=== PATIENT | female | born 1990 | race Two or more races ===

== ENCOUNTER 2019-11-23 22:35 | Inpatient (IN) | payer MEDICAID ==
[~2019-11-23] VITALS: Ht 170.2 cm; Wt 96.0 kg
[2019-11-23] MEDS ORDERED: D5%-LACTATED RINGERS 1,000 ML IV SCH (22:57)
[2019-11-23] MEDS ORDERED: OXYTOCIN 30U/ 0.9% NaCL 500ML 500 ML IV ONE (22:57)
[2019-11-23] MEDS ORDERED: FENTANYL/BUPIV./NS/PF 250 ML EPIDCONT SCH (22:58)
[2019-11-23] MEDS ORDERED: METOCLOPRAMIDE 5 MG/ML, 2ML IVPush PRN (23:00)
[2019-11-23] MEDS ORDERED: TERBUTALINE 1 MG/ML, 1ML SQ PRN (23:00)
[2019-11-23] MEDS ORDERED: ONDANSETRON 2MG/ML, 2ML IVPush PRN (23:00)
[2019-11-23] MEDS ORDERED: FENTANYL PF 100 MCG/2ML IV PRN (23:00)
[2019-11-23] MEDS ORDERED: ALUMINUM/MAG/SIMETHICONE 30 ML UDC PO PRN (23:00)
[2019-11-23] MEDS ORDERED: CALCIUM CARBONATE 500 MG TAB.CHEW PO PRN (23:00)
[2019-11-23] MEDS ORDERED: SODIUM CHLORIDE FLUSH 10ML SYR IVF PRN (23:00)
[2019-11-23] MEDS ORDERED: SODIUM CITRATE/CITRIC ACID 30 ML UDC PO PRN (23:00)
[2019-11-23] MEDS ORDERED: FENTANYL PF 100 MCG/2ML IVPush PRN (23:00)
[2019-11-23] MEDS ORDERED: TERBUTALINE 1 MG/ML, 1ML IVPush PRN (23:00)
[2019-11-23] MEDS ORDERED: LIDOCAINE 1%, 20ML ONE (23:01)
[2019-11-23] MEDS ORDERED: OXYTOCIN 30U/ 0.9% NaCL 500ML 500 ML ONE (23:01)
[2019-11-23 23:14] LABS: BASOPHILS # (AUTO) 0.03 x10^3/uL (0-0.1); BASOPHILS % (AUTO) 0 % (0-1); EOSINOPHILS # (AUTO) 0.08 x10^3/uL (0-0.4); EOSINOPHILS % (AUTO) 1 % (1-7); LYMPHOCYTES # (AUTO) 1.97 x10^3/uL (1-3.4); LYMPHOCYTES % (AUTO) 15 % (22-44); MD NO; MEAN CORPUSCULAR HGB CONC 32.3 g/dL (32.4-35.8); MEAN CORPUSCULAR VOLUME 92.8 fL (80-100); MEAN PLATELET VOLUME 9.8 fL (7.4-10.4); MONOCYTES # (AUTO) 0.37 x10^3/uL (0.2-0.8); MONOCYTES % (AUTO) 3 % (2-9); NEUTROPHILS # (AUTO) 10.99 x10^3/uL (1.8-6.8); NEUTROPHILS % (AUTO) 82 % (42-75); PLATELET COUNT 266 x10^3/uL (130-400); RED BLOOD COUNT 4.48 x10^6/uL (3.82-5.3); RED CELL DISTRIBUTION WIDTH 14.8 % (9.6-15.2)
[2019-11-23] MEDS: LACTATED RINGERS 1,000 ML IV SCH (23:15)
[2019-11-23 23:17] VITALS: BP 120/74
[2019-11-23] MEDS ORDERED: FENTANYL/BUPIV./NS/PF 250 ML EPIDCONT ONE (23:25)
[2019-11-23] MEDS ORDERED: BUPIVACAINE 0.25% ONE (23:28)
[2019-11-23] MEDS ORDERED: PLEASE ENTER ALLERGIES MC SCH (23:30)
[2019-11-23] MEDS ORDERED: PLEASE ENTER HEIGHT AND WEIGHT MC SCH (23:30)
[2019-11-24] MEDS ORDERED: OXYTOCIN 30U/ 0.9% NaCL 500ML 500 ML IV PRN (01:12)
[2019-11-24 01:45] LABS: AMPHETAMINE SCREEN, URINE Negative (Negative); BARBITURATE SCREEN, URINE Negative (Negative); BENZODIAZEPINE SCREEN, URINE Negative (Negative); CANNABINOID SCREEN, URINE Negative (Negative); COCAINE SCREEN, URINE Negative (Negative); METHADONE SCREEN, URINE Negative (Negative); OPIATE SCREEN, URINE Negative (Negative)
[2019-11-24] MEDS: LACTATED RINGERS 1,000 ML IV SCH (01:50)
[2019-11-24] MEDS ORDERED: ONDANSETRON 2MG/ML, 2ML ONE (02:36)
[2019-11-24] MEDS ORDERED: OXYTOCIN 30U/ 0.9% NaCL 500ML 500 ML IV SCH (05:03)
[2019-11-24] MEDS ORDERED: CALCIUM CARBONATE 500 MG TAB.CHEW PO PRN (05:30)
[2019-11-24] MEDS ORDERED: ACETAMINOPHEN 325 MG TABLET PO PRN ×2 (05:30)
[2019-11-24] MEDS ORDERED: OXYTOCIN 10 UNITS/ML, 1ML IM PRN (05:30)
[2019-11-24] MEDS ORDERED: HYDROcodone/APAP 5/325 TABLET PO PRN ×2 (05:30)
[2019-11-24] MEDS ORDERED: METOCLOPRAMIDE 5 MG/ML, 2ML IV PRN (05:30)
[2019-11-24] MEDS ORDERED: SIMETHICONE 80 MG CHEW TAB PO PRN (05:30)
[2019-11-24] MEDS ORDERED: ONDANSETRON 2MG/ML, 2ML IV PRN (05:30)
[2019-11-24 08:20] VITALS: BP 102/69
[2019-11-24 12:56] LABS: BASOPHILS # (AUTO) 0.06 x10^3/uL (0-0.1); BASOPHILS % (AUTO) 0 % (0-1); EOSINOPHILS # (AUTO) 0.05 x10^3/uL (0-0.4); EOSINOPHILS % (AUTO) 0 % (1-7); LYMPHOCYTES # (AUTO) 1.41 x10^3/uL (1-3.4); LYMPHOCYTES % (AUTO) 10 % (22-44); MD NO; MEAN CORPUSCULAR HEMOGLOBIN 30.2 pg (27.0-34.8); MEAN CORPUSCULAR HGB CONC 32.7 g/dL (32.4-35.8); MEAN CORPUSCULAR VOLUME 92.2 fL (80-100); MEAN PLATELET VOLUME 9.9 fL (7.4-10.4); MONOCYTES # (AUTO) 0.37 x10^3/uL (0.2-0.8); MONOCYTES % (AUTO) 3 % (2-9); NEUTROPHILS # (AUTO) 12.88 x10^3/uL (1.8-6.8); NEUTROPHILS % (AUTO) 87 % (42-75); PLATELET COUNT 223 x10^3/uL (130-400); RED CELL DISTRIBUTION WIDTH 14.9 % (9.6-15.2)
[2019-11-24 14:16] VITALS: BP 112/74
[2019-11-24] MEDS: DOCUSATE 100 MG CAPSULE PO PRN (15:05)
[2019-11-24] MEDS: PRENATAL VIT/IRON/FA 1 EACH TABLET PO SCH (15:05)
[2019-11-24] MEDS: IBUPROFEN 600 MG TABLET PO PRN (15:05)
[2019-11-24 16:26] VITALS: BP 122/83
[2019-11-24 19:30] VITALS: BP 127/84
[2019-11-25 00:06] VITALS: BP 128/83
[2019-11-25] MEDS: IBUPROFEN 600 MG TABLET PO PRN ×3 (00:11→15:44)
[2019-11-25 03:08] VITALS: BP 120/78
[2019-11-25] MEDS: DOCUSATE 100 MG CAPSULE PO PRN (08:07)
[2019-11-25] MEDS: PRENATAL VIT/IRON/FA 1 EACH TABLET PO SCH (08:07)
[2019-11-25 08:33] VITALS: BP 122/82
[2019-11-25 21:00] VITALS: BP 126/87
[2019-11-26 07:57] VITALS: BP 129/84
[2019-11-26] MEDS: PRENATAL VIT/IRON/FA 1 EACH TABLET PO SCH (08:33)
[2019-11-26] MEDS: IBUPROFEN 600 MG TABLET PO PRN ×2 (08:34→16:19)
[2019-11-26] MEDS: DOCUSATE 100 MG CAPSULE PO PRN (08:34)
== END 2019-11-26 17:50 | disposition home or self-care (01) | DRG 807 ==
LOC: LDOP 22:35 → LDIP 22:59 → 2NW 11-24 07:54
PROVIDERS: ADMIT Obstetrics & Gynecology; ATTEND Obstetrics & Gynecology
PROC: 0KQM0ZZ Repair Perineum Muscle, Open Approach (ICD-10-PCS; principal; 2019-11-24)
PROC: 10E0XZZ Delivery of Products of Conception, External Approach (ICD-10-PCS; 2019-11-24)
PROC: 3E0R3BZ Introduction of Anesthetic Agent into Spinal Canal, Percutaneous Approach (ICD-10-PCS; 2019-11-24)
PROC: 00HU33Z Insertion of Infusion Device into Spinal Canal, Percutaneous Approach (ICD-10-PCS; 2019-11-24)
DX: O70.1 Second degree perineal laceration during delivery (principal); Z37.0 Single live birth; Z86.61 Personal history of infections of the central nervous system; Z3A.38 38 weeks gestation of pregnancy
CPT/HCPCS: 36415; 80307; 84112; 85025; 86592; 86850; 86900; G0378; J2405; J2590; J7120